=== PATIENT | male | born 1990 | race Caucasian/White ===

== ENCOUNTER 2022-05-01 10:11 | Observation (INO) ==
[2022-05-01 12:04] LABS: BASOPHILS % (AUTO) 0.5 % (0.2-1.0); EOSINOPHILS # (AUTO) 0.1 x10^3/uL (0.0-0.2); EOSINOPHILS % (AUTO) 1.3 % (0.9-2.9); HEMATOCRIT 43.7 % (42.0-54.0); HEMOGLOBIN 15.1 g/dL (13.5-18.0); LYMPHOCYTES # (AUTO) 2.1 X10^3/uL (1.3-2.9); LYMPHOCYTES % (AUTO) 22.4 % (21.0-51.0); MEAN CORPUSCULAR HEMOGLOBIN 28.8 pg (27.0-34.0); MEAN CORPUSCULAR HGB CONC 34.6 g/dL (33.0-35.0); MEAN CORPUSCULAR VOLUME 83.3 fL (80.0-100.0); MEAN PLATELET VOLUME 7.7 fL (7.4-11.0); MONOCYTES # (AUTO) 0.6 x10^3/uL (0.3-0.8); MONOCYTES % (AUTO) 6.1 % (0.0-13.0); NEUTROPHILS # (AUTO) 6.5 x10^3/uL (2.2-4.8); NEUTROPHILS % (AUTO) 69.7 % (42.0-75.0); RED BLOOD COUNT 5.25 X10^6/uL (4.7-6.0); RED CELL DISTRIBUTION WIDTH 13.4 % (11.6-16.5); WHITE BLOOD COUNT 9.4 X10^3/uL (3.6-10.0)
[2022-05-01 12:27] LABS: ALANINE AMINOTRANSFERASE 26 Units/L (12-78); ALBUMIN 3.7 g/dL (3.4-5.0); ALKALINE PHOSPHATASE 119 Units/L (46-116); AMYLASE 47 Units/L (25-115); ASPARTATE AMINO TRANSFERASE 17 Units/L (15-37); BLOOD UREA NITROGEN 10 mg/dL (7-18); CALCIUM 9.4 mg/dL (8.5-10.1); CARBON DIOXIDE 28.8 mmol/L (21-32); CHLORIDE 102 mmol/L (98-107); CREATININE 0.97 mg/dL (0.70-1.30); LIPASE 62 Units/L (73-393); SODIUM 140 mmol/L (136-145); TOTAL PROTEIN 8.6 g/dL (6.4-8.2); eGFR NON BLACK RACES > 60 (>60)
[2022-05-01] MEDS: D5 1/2 NS 1,000 ML 1,000 ML IV SCH ×3 (12:41→21:56)
[2022-05-01] MEDS: PROTONIX INJ 40 MG VIAL IVP SCH (12:41)
[2022-05-01] MEDS ORDERED: ZOFRAN INJ 4 MG VIAL IVP PRN (12:43)
[2022-05-01] MEDS: DILAUDID INJ IVP PRN ×3 (13:15→21:56)
--- NOTE | 2022-05-01 14:31 | US ---
HISTORYABD PAIN, CHOLECYSTITISSTUDYGALL BLADDER ultrasoundCOMPARISONNoneTECHNIQUEMultipl e barnes scale and color flow Doppler images of the right upper quadrant of the abdomen were obtained with image documentation.FINDINGSNo hepatic abnormality is seen. Hepatopetal portal venous flow is seen on Doppler ultrasound.Gallbladder appears normal. No biliary ductal dilation.Visualized portions of the pancreas appear normal. Bowel gas partially obscures the pancreas.No right renal abnormality. Right kidney measures 10.5 cm in length.Visualized portions of the IVC appear normal.IMPRESSIONUnremarkable ultrasound of the right upper quadrant of the abdomen.Electronically signed by: Danny Diaz (May 01, 2022 14:29:32)
[2022-05-01 14:51] VITALS: BMI 24.1
--- NOTE | 2022-05-01 16:09 | DR.UPDATE ---
H&P Update History and Physical Update: History and Physical reviewed and patient examined. Changes noted: NO Yes with the following:will place central line for exhaustion of peripheral veins H&P Reviewed: Yes Patient was examined?: Yes Procedures (ALL) - Central Line Placement PCM.CLCO: written consent Time out performed: Yes Patient placed pm monitor/pulse ox: Yes MD prep: mask, gown, gloves, other Centrial line prep: chlorhexidine scrub, sterile drapes applied Local anesthsia used: lidocane 1% Ultrasound used for placement: Yes (right ij id'd via u/s and cannulation visualized) Central line lumen ininserted: triple Post procedure: sutured in place, good blood return, all ports aspirated, flushed,capped, sterile dressing applied Post procedure xray: no pneumothorax seen Patient tolerated procedure: Yes Complications: none
[2022-05-01] MEDS: TORADOL 30 MG VIAL IVP PRN ×2 (16:31→23:22)
--- NOTE | 2022-05-01 16:43 | RAD ---
HISTORYCENTRAL LINE PLACEMENTSTUDYCHEST, 1 VIEWCOMPARISONNone availableTECHNIQUEChest radiographic imaging, AP portable projection, 2 imagesFINDINGSNo cardiomegaly.Right internal jugular central line tip overlies the upper atrium with the tip approximately 3.5 cm distal to the cavoatrial junction.No focal airspace disease.No pleural effusion.No pneumothorax.No acute osseous abnormality.IMPRESSION1. No imaging findings of acute cardiopulmonary disease.2. Right internal jugular central line tip overlies the upper atrium with the tip approximately 3.5 cm distal to the cavoatrial junction.Electronically signed by: Tej Elizondo (May 01, 2022 16:41:27)
[2022-05-01] MEDS: NICOTINE PATCH TD SCH (18:08)
[2022-05-02] MEDS: D5 1/2 NS 1,000 ML 1,000 ML IV SCH ×2 (03:40→18:16)
[2022-05-02] MEDS: TORADOL 30 MG VIAL IVP PRN ×3 (05:00→18:50)
[2022-05-02 05:26] LABS: MEAN CORPUSCULAR HEMOGLOBIN 28.4 pg (27.0-34.0)
[2022-05-02 05:29] LABS: BASOPHILS # (AUTO) 0.1 X10^3/uL (0.0-0.1); BASOPHILS % (AUTO) 0.8 % (0.2-1.0); EOSINOPHILS # (AUTO) 0.2 x10^3/uL (0.0-0.2); EOSINOPHILS % (AUTO) 1.9 % (0.9-2.9); HEMATOCRIT 37.2 % (42.0-54.0); LYMPHOCYTES % (AUTO) 27.4 % (21.0-51.0); MEAN CORPUSCULAR HGB CONC 34.4 g/dL (33.0-35.0); MEAN CORPUSCULAR VOLUME 82.4 fL (80.0-100.0); MEAN PLATELET VOLUME 8.6 fL (7.4-11.0); MONOCYTES # (AUTO) 0.9 x10^3/uL (0.3-0.8); MONOCYTES % (AUTO) 7.9 % (0.0-13.0); NEUTROPHILS # (AUTO) 6.8 x10^3/uL (2.2-4.8); RED BLOOD COUNT 4.52 X10^6/uL (4.7-6.0); RED CELL DISTRIBUTION WIDTH 13.5 % (11.6-16.5); WHITE BLOOD COUNT 10.9 X10^3/uL (3.6-10.0)
[2022-05-02 05:43] LABS: ALANINE AMINOTRANSFERASE 23 Units/L (12-78); ALKALINE PHOSPHATASE 100 Units/L (46-116); ASPARTATE AMINO TRANSFERASE 13 Units/L (15-37); BLOOD UREA NITROGEN 10 mg/dL (7-18); CALCIUM 8.4 mg/dL (8.5-10.1); CARBON DIOXIDE 29.4 mmol/L (21-32); CHLORIDE 104 mmol/L (98-107); COR CA(FOR HYPOALB) 9.2 mg/dL (8.5-10.1); CREATININE 1.01 mg/dL (0.70-1.30); SODIUM 141 mmol/L (136-145); TOTAL PROTEIN 7.1 g/dL (6.4-8.2); eGFR NON BLACK RACES > 60 (>60)
[2022-05-02 06:09] LABS: HEMOGLOBIN 12.8 g/dL (13.5-18.0)
[2022-05-02] MEDS: PROTONIX INJ 40 MG VIAL IVP SCH (11:21)
[2022-05-02] MEDS: NICOTINE PATCH TD SCH (11:21)
[2022-05-02] MEDS: DILAUDID INJ IVP PRN ×7 (11:21→19:47)
[2022-05-02] MEDS ORDERED: DILAUDID INJ IM ONE (11:34)
[2022-05-02] MEDS ORDERED: VALIUM PO PRN (11:39)
[2022-05-02] MEDS ORDERED: VALIUM INJ IVP PRN ×2 (11:44→15:39)
--- NOTE | 2022-05-02 12:46 | NM ---
Nuclear medicine hepatobiliary scanEjection fractionIndication: Abdominal pain.Technique: 5.7 millicuries of technetium 99 M Choletec given IV per protocol. 8 ounce of Ensure Plus given for ejection fractionPlanar imaging obtained. Curves calculatedComparison: May 01, 2022 sonogramFindings: There is prompt uptake of radiotracer by the liver with normal excretion into the common bile duct, gallbladder and small bowel. Ejection fraction is 67 percent at 30 minutes.Impression:1. No evidence of acute cholecystitis2. Normal ejection fractionElectronically signed by: GERTRUDIS PRYOR (May 02, 2022 12:44:45)
[2022-05-02] MEDS ORDERED: VERSED ONE (13:05)
[2022-05-02] MEDS ORDERED: ZEMURON 100 MG VIAL ONE (13:05)
[2022-05-02] MEDS ORDERED: DIPRIVAN VIAL 20 ML ONE (13:05)
[2022-05-02] MEDS ORDERED: XYLOCAINE 2 % (PLAIN) ONE (13:05)
[2022-05-02] MEDS ORDERED: FENTANYL VIAL INJ 250 mcg ONE (13:05)
[2022-05-02] MEDS ORDERED: QUELICIN (OR ANECTINE) ONE (13:05)
[2022-05-02] MEDS ORDERED: PEPCID 20 MG VIAL 20 MG in NS 50 ML IV 50 ML IV ONE (13:07)
[2022-05-02] MEDS ORDERED: REGLAN INJ 10 MG VIAL IVP ONE (13:07)
[2022-05-02] MEDS ORDERED: BARHEMSYS INJ IVP PRN (13:18)
[2022-05-02] MEDS ORDERED: PHENERGAN INJ 25 MG IM PRN (13:18)
[2022-05-02] MEDS ORDERED: ZOFRAN INJ 4 MG VIAL IVP PRN (13:18)
[2022-05-02] MEDS ORDERED: BENADRYL INJ 50 MG VIAL IVP PRN (13:18)
[2022-05-02] MEDS ORDERED: REGLAN INJ 10 MG VIAL IVP PRN (13:18)
[2022-05-02] MEDS ORDERED: BACTROBAN TOPICAL OINT ONE (13:19)
--- NOTE | 2022-05-02 13:42 | RAD ---
HISTORYPOSSIBLE CENTRAL LINE DISPLACEMENTSTUDYCHEST, 1 VIEWCOMPARISONOne day prior.TECHNIQUEAP view of the chestFINDINGSRight IJ central line with tip just distal to the superior cavoatrial junction.[The cardiac and mediastinal contours are within normal limits. The lungs are clear without focal consolidation or segmental collapse. No pleural effusion or pneumothorax.]IMPRESSIONRight IJ central line with tip disc distal to the superior cavoatrial junction. Consider 2 cm retraction.Electronically signed by: Olivier Hussein (May 02, 2022 13:40:05)
[2022-05-02] MEDS ORDERED: LR 1,000 ML IV 1,000 ML IV ONE (14:02)
[2022-05-02] MEDS ORDERED: ANCEF VIAL 1 GRAM ONE (14:09)
[2022-05-02] MEDS ORDERED: NS 100 ML IV 100 ML ONE (14:09)
[2022-05-02] MEDS ORDERED: SUPRANE ONE (14:09)
[2022-05-02] MEDS ORDERED: BRIDION ONE (14:47)
[2022-05-02] MEDS ORDERED: TORADOL 30 MG VIAL ONE (14:47)
[2022-05-02] MEDS ORDERED: ZOFRAN INJ 4 MG VIAL ONE (14:47)
[2022-05-02] MEDS ORDERED: DILAUDID INJ ONE (15:17)
[2022-05-03] MEDS: DILAUDID INJ IVP PRN ×2 (00:45→02:05)
[2022-05-03] MEDS: D5 1/2 NS 1,000 ML 1,000 ML IV SCH ×2 (00:46→09:13)
[2022-05-03] MEDS: TORADOL 30 MG VIAL IVP PRN ×2 (00:54→07:31)
[2022-05-03 07:01] LABS: ALANINE AMINOTRANSFERASE 31 Units/L (12-78); ALKALINE PHOSPHATASE 93 Units/L (46-116); ASPARTATE AMINO TRANSFERASE 21 Units/L (15-37); BLOOD UREA NITROGEN 6 mg/dL (7-18); CALCIUM 8.3 mg/dL (8.5-10.1); CARBON DIOXIDE 28.5 mmol/L (21-32); CHLORIDE 106 mmol/L (98-107); COR CA(FOR HYPOALB) 9.1 mg/dL (8.5-10.1); COR NA(FOR HYPERGLY) 142 mmol/L (136-145); CREATININE 0.87 mg/dL (0.70-1.30); SODIUM 142 mmol/L (136-145); TOTAL PROTEIN 6.9 g/dL (6.4-8.2); eGFR NON BLACK RACES > 60 (>60)
[2022-05-03 07:02] LABS: BASOPHILS % (AUTO) 0.4 % (0.2-1.0); EOSINOPHILS # (AUTO) 0.1 x10^3/uL (0.0-0.2); EOSINOPHILS % (AUTO) 0.9 % (0.9-2.9); HEMATOCRIT 36.8 % (42.0-54.0); HEMOGLOBIN 12.8 g/dL (13.5-18.0); LYMPHOCYTES # (AUTO) 2.3 X10^3/uL (1.3-2.9); MEAN CORPUSCULAR HEMOGLOBIN 28.8 pg (27.0-34.0); MEAN CORPUSCULAR HGB CONC 34.7 g/dL (33.0-35.0); MEAN CORPUSCULAR VOLUME 82.9 fL (80.0-100.0); MEAN PLATELET VOLUME 8.1 fL (7.4-11.0); MONOCYTES # (AUTO) 0.8 x10^3/uL (0.3-0.8); MONOCYTES % (AUTO) 6.9 % (0.0-13.0); NEUTROPHILS # (AUTO) 7.8 x10^3/uL (2.2-4.8); NEUTROPHILS % (AUTO) 70.8 % (42.0-75.0); RED BLOOD COUNT 4.43 X10^6/uL (4.7-6.0); RED CELL DISTRIBUTION WIDTH 13.6 % (11.6-16.5); WHITE BLOOD COUNT 10.9 X10^3/uL (3.6-10.0)
[2022-05-03] MEDS: PROTONIX INJ 40 MG VIAL IVP SCH (08:23)
[2022-05-03] MEDS: NICOTINE PATCH TD SCH (08:25)
[2022-05-03 09:13] VITALS: BP 128/74
== END 2022-05-03 09:45 | disposition home or self-care (01) ==
LOC: ICU
PROVIDERS: ADMIT Surgery; ATTEND Surgery
DX: I87.2 Venous insufficiency (chronic) (peripheral); F12.90 Cannabis use, unspecified, uncomplicated; R11.2 Nausea with vomiting, unspecified; R10.13 Epigastric pain; K81.1 Chronic cholecystitis; R10.11 Right upper quadrant pain; R10.84 Generalized abdominal pain